=== PATIENT | female | born 1965 | race Caucasian/White ===

== ENCOUNTER → 2017-09-23 | Outpatient (CLI) | payer OTHER ==
[2017-09-24 12:03] LABS: HPV Genotype 16 Not Detected (NOTDET); HPV Genotype 18 Not Detected (NOTDET)
[2017-09-30 11:33] LABS: HPV High Risk Other Detected (NOTDET)
== END | disposition home or self-care (01) ==
LOC: OLS 12:25 → LAB SHORT 12:25
PROVIDERS: Obstetrics & Gynecology Gynecology
DX: Z12.4 Encounter for screening for malignant neoplasm of cervix (principal); N89.8 Other specified noninflammatory disorders of vagina
CPT/HCPCS: 87070; 87077; 87186; 87205; 87624; G0123

== ENCOUNTER → 2017-11-02 | Outpatient (CLI) | payer OTHER | LOC: LAB EV 12:27 → LAB SHORT 12:27 | DX: J02.9 Acute pharyngitis, unspecified (principal) | CPT/HCPCS: 87070 ==

== ENCOUNTER → 2017-11-06 | Outpatient (CLI) | payer OTHER ==
[2017-11-09 18:06] LABS: HSV-1 DNA Negative (Negative); HSV-2 DNA Positive (Negative)
== END | disposition home or self-care (01) ==
LOC: OLS 14:09 → LAB SHORT 14:09
PROVIDERS: Obstetrics & Gynecology Gynecology
DX: N90.89 Other specified noninflammatory disorders of vulva and perineum (principal); N89.8 Other specified noninflammatory disorders of vagina
CPT/HCPCS: 87070; 87205; 87529

== ENCOUNTER → 2017-11-19 | Outpatient (CLI) | payer OTHER | END | disposition home or self-care (01) | LOC: PLD 15:24 → LAB SHORT 15:24 | DX: N87.9 Dysplasia of cervix uteri, unspecified (principal) | CPT/HCPCS: 88305 ==

== ENCOUNTER → 2018-11-10 | Outpatient (CLI) | payer OTHER ==
[2018-11-11 15:06] LABS: HPV 16 Negative (Negative); HPV 18 Negative (Negative); HPV OTHER HR TYPES Negative (Negative)
== END | disposition home or self-care (01) ==
LOC: LAB 13:02 → LAB SHORT 13:02
PROVIDERS: Obstetrics & Gynecology Gynecology
DX: Z12.4 Encounter for screening for malignant neoplasm of cervix (principal)
CPT/HCPCS: 87624; G0123

== ENCOUNTER 2020-06-08 06:20 | Day surgery (SDC) | payer OTHER ==
[~2020-06-08] VITALS: Ht 167.6 cm; Wt 111.1 kg
[~2020-06-08 06:20] MED LIST: CALCIUM PO; MAGNESIUM CITR100 MG PO; PROG100 PO; SERT25 PO; SPIR25 PO; Vitamin D1000 UNI1 PO
== END 2020-06-08 10:02 | disposition home or self-care (01) ==
LOC: ORSCSDS 06:20
DX: J34.3 Hypertrophy of nasal turbinates (principal); J01.01 Acute recurrent maxillary sinusitis; I10 Essential (primary) hypertension; E66.01 Morbid (severe) obesity due to excess calories; Z68.39 Body mass index [BMI] 39.0-39.9, adult
CPT/HCPCS: J0171; J1100; J2250; J2405; J2550; J2704; J2765; J3010; J7120

== ENCOUNTER → 2021-08-17 | Outpatient (CLI) | payer OTHER | END | disposition home or self-care (01) | LOC: LAB SHORT 12:34 | DX: L08.9 Local infection of the skin and subcutaneous tissue, unspecified (principal) | CPT/HCPCS: 87070; 87077; 87186; 87205 ==

== ENCOUNTER → 2022-11-10 | Outpatient (CLI) | payer OTHER ==
[2022-11-10 14:17] LABS: BASOPHILS ABSOLUTE AUTO 0.03 K/mm3 (0.00-0.23); BASOPHILS PERCENT AUTO 0 % (0-2); EOSINOPHILS ABSOLUTE AUTO 0.25 K/mm3 (0.00-0.68); EOSINOPHILS PERCENT AUTO 4 % (0-6); Hematocrit 43.2 % (33.0-51.0); Hemoglobin 14.8 g/dL (11.5-16.0); IMMATURE GRAN ABSOLUTE AUTO 0.02 K/mm3 (0.00-0.10); IMMATURE GRAN PERCENT AUTO 0 % (0-1); LYMPHOCYTES PERCENT AUTO 27 % (21-46); MONOCYTES ABSOLUTE AUTO 0.47 K/mm3 (0.16-1.47); MONOCYTES PERCENT AUTO 7 % (4-13); Mean Corpuscular HGB 31.6 pg (26.0-34.0); Mean Corpuscular HGB Conc 34.3 g/dL (31.5-36.5); Mean Corpuscular Volume 92 fL (80-100); Mean Platelet Volume 10.3 fL (9.1-12.4); NEUTROPHILS PERCENT AUTO 62 % (41-73); Platelet Count 250 K/mm3 (150-400); RDW Coefficient Variation 13.1 % (11.7-14.2); RDW Standard Deviation 44.2 fL (35.1-46.3); Red Blood Cell Count 4.69 M/mm3 (3.80-5.20); White Blood Cell Count 7.07 K/mm3 (4.00-11.30)
[2022-11-10 14:33] LABS: Albumin, Blood 3.9 g/dL (3.4-5.0); Albumin/Globulin Ratio 1.1 (0.8-1.8); Bilirubin, Total 0.5 mg/dL (0.1-1.0); Bun/Creatinine Ratio 14.7 (12.0-20.0); Calcium, Blood 9.3 mg/dL (8.5-10.1); Creatinine, Blood 0.75 mg/dL (0.40-1.00); Globulin, Blood 3.6 g/dL (2.2-4.0); Potassium, Blood 3.9 mmol/L (3.5-5.5); Thyroid Stimulating Hormone 1.967 uIU/mL (0.360-4.800); Total Protein, Blood 7.5 g/dL (6.4-8.2)
== END ==
LOC: LAB 14:08 → LAB SHORT 14:08
PROVIDERS: Physician Assistant
DX: R10.9 Unspecified abdominal pain (principal); R53.83 Other fatigue
CPT/HCPCS: 80053; 82150; 83690; 84443; 85025

== ENCOUNTER 2024-01-08 06:26 | Inpatient (IN) | payer OTHER ==
[~2024-01-08] VITALS: Ht 167.6 cm; Wt 105.4 kg
[2024-01-08] VITALS (13 sets, daily range): BP systolic 103–138; BP diastolic 58–85
[~2024-01-08 06:26] MED LIST changes: +ALDACTONE100 MG PO; -SPIR25 PO
[2024-01-08] MEDS ORDERED: CeFAZolin Sodium 2,000 MG in NS 100 ML IV SCH ×2 (06:35→14:00)
[2024-01-08] MEDS ORDERED: Lactated Ringer's 1,000 ML IV SCH ×2 (06:35→11:40)
[2024-01-08] MEDS ORDERED: ASCO500 PO (06:49)
[2024-01-08] MEDS ORDERED: propofoL 40 ML IV ONE (07:30)
[2024-01-08] MEDS ORDERED: Bupivacaine 0.5% HCl 5 MG/ML 30MLVIAL ONE (07:32)
[2024-01-08] MEDS ORDERED: Scopolamine Hydrobromide Patch TOP ONE (07:45)
[2024-01-08] MEDS ORDERED: Rocuronium Bromide 10 MG/ML 5ML Injection IV ONE ×2 (08:04→08:55)
[2024-01-08] MEDS ORDERED: FentaNYL Citrate 50 MCG/ML 2 ML Injection ONE (08:04)
[2024-01-08] MEDS ORDERED: HYDROmorphone HCl/Pf 1MG SYR ONE ×2 (08:48→10:51)
[2024-01-08] MEDS ORDERED: Spironolactone 25 MG Tab PO SCH (09:00)
[2024-01-08] MEDS ORDERED: Ondansetron HCl 2 MG / ML 2ML Vial ONE (09:45)
[2024-01-08] MEDS ORDERED: Metoclopramide HCl 5MG / ML 2ML Vial ONE (09:45)
[2024-01-08] MEDS ORDERED: Dexamethasone Sod Phos 10 MG/ML 1ML VIAL ONE (09:45)
[2024-01-08] MEDS ORDERED: Sugammadex Sodium 200 MG/2ML SDV (100 MG/ML) ONE (11:19)
[2024-01-08] MEDS ORDERED: Naloxone HCl 0.4MG / ML 1ML Vial IV PRN (11:35)
[2024-01-08] MEDS ORDERED: Promethazine HCl 25 MG Tab PO PRN (11:40)
[2024-01-08] MEDS ORDERED: Ondansetron HCl 2 MG / ML 2ML Vial IV PRN (11:40)
[2024-01-08] MEDS ORDERED: HYDROmorphone HCl/Pf 1MG SYR IV PRN (11:40)
[2024-01-08] MEDS ORDERED: HYDROcodone 5-APAP 325 TAB PO PRN (11:40)
[2024-01-08] MEDS ORDERED: Simethicone 80 MG Chew PO PRN (11:40)
[2024-01-08] MEDS ORDERED: Promethazine HCl 12.5 MG Supp PR PRN (11:45)
[2024-01-08] MEDS ORDERED: Ondansetron 4 MG TAB PO PRN (11:45)
[2024-01-08] MEDS ORDERED: Ketorolac Tromethamine 30mg Vial IV PRN (12:20)
--- NOTE | 2024-01-08 12:41 | NUR ---
arrived to room per jigar pt reports nausea and 8/10 abd cramping. pt medicated for pain and nausea. cordell pad with scant red vaginal drainage. solomon removed per pt request.abd incisions intact with glue, no drainage. pts oriented to room and call system. pts at bedside
--- NOTE | 2024-01-08 16:10 | NUR ---
SHIFT SUMMARY: POD 0 LAP HYSTER PATIENT IS A&OX4. VS ARE WNL AND IS ON RA. PAIN HAS BEEN MANAGED WITH PO NORCO AND IV TORADOL. PATIENT HAS BEEN INTERMITTENTLY NAUSEOUS BUT HAS BEEN MANAGED WITH IV ZOFRAN AND PO PHENERGAN AT THIS TIME. HER ABD HAS X4 LAP SITES WITH WOUND GLUE THAT ARE C/D/I. SID PAD HAS SCANT AMOUNT OF BLOOD OUTPUT ON IT. SHE HAS A ABD BINDER ON AT THIS TIME. SHE VOIDED A SMALL AMOUNT AND IS TOLERATING SMALL AMOUNTS OF PO INTAKE AT THIS TIME. WILL CONTINUE TO MONITOR PATIENTS BLADDER BY BLADDER SCANNING PER PROTOCOL. PATIENT IS LAYING IN BED WITH CALL LIGHT IN REACH.
[2024-01-09 02:24] VITALS: BP 113/69
[2024-01-09 05:00] LABS: BASOPHILS ABSOLUTE AUTO 0.02 K/mm3 (0.00-0.23); BASOPHILS PERCENT AUTO 0 % (0-2); EOSINOPHILS PERCENT AUTO 0 % (0-6); Hematocrit 40.8 % (33.0-51.0); Hemoglobin 13.4 g/dL (11.5-16.0); IMMATURE GRAN ABSOLUTE AUTO 0.09 K/mm3 (0.00-0.10); IMMATURE GRAN PERCENT AUTO 1 % (0-1); LYMPHOCYTES ABSOLUTE AUTO 1.21 K/mm3 (0.84-5.20); LYMPHOCYTES PERCENT AUTO 7 % (21-46); MONOCYTES ABSOLUTE AUTO 1.04 K/mm3 (0.16-1.47); MONOCYTES PERCENT AUTO 6 % (4-13); Mean Corpuscular HGB 31.4 pg (26.0-34.0); Mean Corpuscular HGB Conc 32.8 g/dL (31.5-36.5); Mean Corpuscular Volume 96 fL (80-100); Mean Platelet Volume 10.4 fL (9.1-12.4); NEUTROPHILS ABSOLUTE AUTO 16.25 K/mm3 (1.96-9.15); NEUTROPHILS PERCENT AUTO 87 % (41-73); Platelet Count 232 K/mm3 (150-400); RDW Coefficient Variation 13.7 % (11.7-14.2); Red Blood Cell Count 4.27 M/mm3 (3.80-5.20); White Blood Cell Count 18.61 K/mm3 (4.00-11.30)
--- NOTE | 2024-01-09 05:24 | NUR ---
SHIFT SUMMARY POD 1 TOTAL LAP HYSTR c BSO. NO ACUTE CHANGES OVERNIGHT. VSS, PT ON 2L O2 VIA NC TO MAINTAIN SAT >90% WHILE ALSEEP; CONT BIOX IN USE. TOLERATING ORALS, PT REPORTS NO NAUSEA OVERNIGHT. AMBULATING/VOIDING IND. LAP SITE x4 C/D/I. ABD BINDER IN USE. MIN DRAINAGE ON SID PAD x2 OVERNIGHT; SANG DRAINAGE. PT REPORTS PAIN MAINLY IN RLQ ABD, MEDICATED PER EMAR, PT REPORTS TOLERABLE. ANTICIPATED D/C LATER TODAY. CALL LIGHT IN REACH, BED IN LOWEST POSITION, WILL REPORT TO DAY RN.
[2024-01-09 07:10] VITALS: BP 101/64
[2024-01-09] MEDS ORDERED: Estradiol 1 MG Tab PO SCH (09:00)
[2024-01-09] MEDS ORDERED: Phenergan25 M1 PO (11:05)
[2024-01-09] MEDS ORDERED: IBU800 M1 PO (11:05)
[2024-01-09] MEDS ORDERED: HYDROCODONE-AC1 EA19 PO (11:06)
[2024-01-09] MEDS ORDERED: ALBU90OI INH (11:06)
[2024-01-09] MEDS ORDERED: ACYC400 PO (11:07)
--- NOTE | 2024-01-09 11:24 | NUR ---
Pt. is awake in bed and welcomes my visit. Pt. is pleasant. Daughter is at bedside. Pt. is awaiting discharge when I facilite a life review. Listen with interest and empathy and rapport is established. Pt. displayed evidence of being at peace and looking forward to pacing herself at discharge. Prayed with the Pt. Pt. verbalized gratitude for the spiritual care visit.
[2024-01-09] MEDS ORDERED: SIME80CH PO (11:43)
[2024-01-09] MEDS ORDERED: ESTR2 PO (11:43)
--- NOTE | 2024-01-09 12:02 | NUR ---
DISCHARGE PT EDUCATED ON AND RECEIVED PRINTED DC INSTRUCTIONS AND VERB AN UNDERSTANDING. PT REPORTS FILLING RX PRIOR TO SURGERY EXCEPT FOR ESTROGEN. ESTROGEN RX FAXED TO [facility] PER PT REQUEST. IV DC'D. PT PACKED PERSONAL BELONGINGS. PT AT BEDSIDE TO TAKE PT HOME.
== END 2024-01-09 12:07 | disposition home or self-care (01) | DRG 983 ==
LOC: ORSCMMR 06:26 → ORD 08:00 → ORSCMMR 08:00 → SURS 08:30 → ORSCMMR 12:06 → SURS 22:53 → ORSCMMR 22:53 → SURS 01-09 12:07
PROVIDERS: Surgery; ADMIT Obstetrics & Gynecology
PROC: 0UT74ZZ Resection of Bilateral Fallopian Tubes, Percutaneous Endoscopic Approach (ICD-10-PCS; 2024-01-08)
PROC: 8E0W4CZ Robotic Assisted Procedure of Trunk Region, Percutaneous Endoscopic Approach (ICD-10-PCS; 2024-01-08)
PROC: 0UT94ZZ Resection of Uterus, Percutaneous Endoscopic Approach (ICD-10-PCS; principal; 2024-01-08 08:00)
PROC: 0UT24ZZ Resection of Bilateral Ovaries, Percutaneous Endoscopic Approach (ICD-10-PCS; 2024-01-08 08:00)
DX: R01.1 Cardiac murmur, unspecified (principal); D25.9 Leiomyoma of uterus, unspecified; N85.2 Hypertrophy of uterus; N95.0 Postmenopausal bleeding; N85.00 Endometrial hyperplasia, unspecified; N83.8 Other noninflammatory disorders of ovary, fallopian tube and broad ligament; I10 Essential (primary) hypertension; E28.2 Polycystic ovarian syndrome; J45.909 Unspecified asthma, uncomplicated; Z88.5 Allergy status to narcotic agent; Z98.51 Tubal ligation status; Z01.812 Encounter for preprocedural laboratory examination
CPT/HCPCS: 36415; 80048; 84702; 85025; 86850; 86900; 86901; 88307; 94762; A9270; J0690; J1100; J1170; J1885; J2405; J2704; J2765; J3010; J7120

== ENCOUNTER → 2025-04-18 | Outpatient (CLI) | payer OTHER ==
[~2025-04-18] MED LIST changes: +ACYC400 PO; +ALBU90OI INH; +ASCO500 PO; +ESTR2 PO; +HYDROCODONE-AC1 EA19 PO; +IBU800 M1 PO; +Phenergan25 M1 PO; +SIME80CH PO
== END ==
LOC: LAB 18:02 → LAB SHORT 18:02
DX: J02.9 Acute pharyngitis, unspecified (principal)
CPT/HCPCS: 87081